=== PATIENT | female | born 1990 | race Caucasian/White ===

== ENCOUNTER 2024-02-21 23:40 | Emergency (ER) | payer SELFPAY | END 2024-02-22 02:40 | disposition home or self-care (01) | LOC: CSHERS 23:40 | DX: S61.215A Laceration without foreign body of left ring finger without damage to nail, initial encounter (principal); F17.210 Nicotine dependence, cigarettes, uncomplicated; W26.0XXA Contact with knife, initial encounter | CPT/HCPCS: 12001; 99282 ==